=== PATIENT | female | born 1955 | race Caucasian/White ===

== ENCOUNTER → 2023-09-08 09:05 | Outpatient (REF) | payer MEDICARE, SELFPAY ==
[2023-09-08 10:03] LABS: % Basophils 0.4 % (0-2); % Eosinophils 3.3 % (0-6); % Immature Granulocytes 0.3 % (0-0.5); % Lymphocytes 23.9 % (20.5-51.1); % Monocytes 7.1 % (1.7-9.3); Absolute Eosinophils 0.2 10^3/uL (0-0.7); Absolute Lymphocytes 1.6 10^3/uL (1.2-3.4); Absolute Monocytes 0.5 10^3/uL (0.1-0.6); Absolute Neutrophils 4.4 10^3/uL (1.4-6.5); Hematocrit 40.4 % (37.0-47.0); Hemoglobin 14.1 g/dL (12.0-16.0); Mean Corp Hgb Conc. 34.9 g/dL (33.0-37.0); Mean Corpuscular Hgb 31.9 pg (27.0-31.0); Mean Corpuscular Volume 91.4 fL (81.0-99.0); Mean Platelet Volume 10.7 fL (7.4-10.4); Nucleated Red Blood Cells % 0 %; Platelet Count 234 10^3/uL (130-400); Red Blood Cell Count 4.42 10^6/uL (4.20-5.40); Red Cell Dist. Width 12.4 % (11.5-14.5); White Blood Cell Count 6.7 10^3/uL (4.8-10.8)
[2023-09-08 10:57] LABS: ALT (SGPT) 20 U/L (0-35); AST (SGOT) 25 U/L (14-36); Albumin 4.5 g/dl (3.5-5.0); Alkaline Phosphatase 80 U/L (38-126); Blood Urea Nitrogen 17 mg/dl (7-17); Calcium 9.2 mg/dl (8.4-10.2); Carbon Dioxide 26 mmol/L (22-30); Chloride 105 mmol/L (98-107); Glucose 92 mg/dl (70-99); Potassium 3.8 mmol/L (3.5-5.1); Sodium 140 mmol/L (135-145); Total Bilirubin 0.7 mg/dl (0.2-1.3); eGFR > 60.00
[2023-09-08 11:05] LABS: Vitamin D, 25-OH*** 50.9 ng/mL (30-80)
[2023-09-08 11:54] LABS: Total Protein 7.9 g/dl (6.3-8.2)
== END ==
LOC: RAD 09:05
PROVIDERS: ATTENDING PHYSICIAN Internal Medicine Rheumatology; FAMILY PHYSICIAN Internal Medicine
DX: M81.0 Age-related osteoporosis without current pathological fracture (principal); K57.32 Diverticulitis of large intestine without perforation or abscess without bleeding; Z92.21 Personal history of antineoplastic chemotherapy; E55.9 Vitamin D deficiency, unspecified
CPT/HCPCS: 36415; 77080; 80053; 82306; 85025

== ENCOUNTER 2024-01-24 10:43 | Emergency (ER) | payer MEDICARE, SELFPAY ==
[2024-01-24] VITALS (8 sets, daily range): BP systolic 102–123; BP diastolic 71–80; BMI 25.9
[2024-01-24] MEDS: NSS 1000 IV (11:13)
[2024-01-24 11:27] LABS: % Basophils 0.2 % (0-2); % Eosinophils 0.8 % (0-6); % Immature Granulocytes 0.2 % (0-0.5); % Lymphocytes 13.3 % (20.5-51.1); % Monocytes 8.8 % (1.7-9.3); % Neutrophils 76.7 % (42.2-75.2); Absolute Lymphocytes 0.7 10^3/uL (1.2-3.4); Absolute Monocytes 0.5 10^3/uL (0.1-0.6); Hematocrit 40.8 % (37.0-47.0); Hemoglobin 14.2 g/dL (12.0-16.0); Mean Corp Hgb Conc. 34.8 g/dL (33.0-37.0); Mean Corpuscular Hgb 31.7 pg (27.0-31.0); Mean Corpuscular Volume 91.1 fL (81.0-99.0); Nucleated Red Blood Cells % 0 %; Platelet Count 215 10^3/uL (130-400); Red Blood Cell Count 4.48 10^6/uL (4.20-5.40); Red Cell Dist. Width 13.1 % (11.5-14.5); White Blood Cell Count 5.2 10^3/uL (4.8-10.8)
[2024-01-24 11:45] LABS: ALT (SGPT) 23 U/L (0-35); AST (SGOT) 26 U/L (14-36); Albumin 4.8 g/dl (3.5-5.0); Alkaline Phosphatase 77 U/L (38-126); Blood Urea Nitrogen 30 mg/dl (7-17); Carbon Dioxide 25 mmol/L (22-30); Chloride 104 mmol/L (98-107); Estimated Creatinine Clearance 55 ml/min; Glucose 111 mg/dl (70-99); Lipase 105 U/L (23-300); Potassium 3.9 mmol/L (3.5-5.1); Sodium 139 mmol/L (135-145); Total Bilirubin 0.8 mg/dl (0.2-1.3); Total Protein 7.7 g/dl (6.3-8.2); eGFR > 60.00
[2024-01-24] MEDS: OMNIPAQUE 50 ML PO (11:50)
[2024-01-24] MEDS: PEPCID 20 MG IV (11:51)
[2024-01-24] MEDS: COMPAZINE 10 MG IV (11:51)
--- NOTE | 2024-01-24 13:29 | ED.GENMED ---
History of Present Illness
General
Chief Complaint: Abdominal Pain
Source: patient
Exam Limitations: none
Time Seen by Provider: 01/24/24 11:14
Nursing documentation reviewed up to this point in time: agreed with
History of Present Illness
History of Present Illness:
70-year-old female with past medical history of previous colon cancer and partial colectomy presenting to the emergency department today with concerns of nausea vomiting diarrhea starting yesterday ongoing symptoms today has been feeling fatigued.
Denies any chest pain shortness of breath or fevers no blood in her vomitus or stool
Review of Systems
Review of Systems
Allergies reviewed?: Yes
All Other Systems: ROS reviewed and negative except as documented in HPI and ROS
Phy Exam
Physical Exam
Physical Exam:
GENERAL: Alert , in no apparent distress
EYE: pupils equal and reactive
NECK: Supple, no significant adenopathy.
ENT: o/p clr, mmm.
CARDIAC: Regular rate and rhythm .
LUNGS: Clear breath sounds bilaterally, no acute respiratory distress, no wheezes/rales/rhonchi
ABDOMEN: Tenderness palpation to the upper abdomen otherwise abdomen soft, without focal tenderness, no r/g, no cvat
NEUROLOGICAL: Alert and oriented, no focal neuro deficits
SKIN: Warm and dry, skin intact.
MUSCULOSKELETAL: No edema, well perfused.
PSYCH: Normal and appropriate interaction.
Course
Orders/Labs/Results
Orders:
Orders
01/24/24 11:12
0.9% Sodium Chloride 1000 ml [Nss] 1,000 ml IV BOLUS
01/24/24 11:17
Complete Blood Count/With Diff Urgent
Comprehensive Metabolic Panel Urgent
Lipase Urgent
01/24/24 11:40
CT Abd/pel W Iv And Oral Contr Urgent
Comment:
Reason For Exam: hx of partial colectomy/colon CA, abd pain mid abd
Famotidine [Pepcid] 20 mg IV NOW STA
Iohexol [Omnipaque] See Protocol PO NOW STA
Prochlorperazine [Compazine] 10 mg IV NOW STA
01/24/24 13:15
Urinalysis Reflex To Culture Urgent
Date Specimen was Collected: 01/24/24
Time Specimen was Collected: 13:14
Urine Microscopic Reflex Cult Urgent
C difficile Antigen & Toxins Urgent
NATALIYA Source: Feces/Stool
Specimen Description:
Date Specimen was Collected: 01/24/24
Time Specimen was Collected: 13:14
Giardia/Cryptosporidium Ag Urgent
NATALIYA Source: Feces/Stool
Specimen Description:
Date Specimen was Collected: 01/24/24
Time Specimen was Collected: 13:14
Stool Culture Urgent
NATALIYA Source: Feces/Stool
Specimen Description:
Date Specimen was Collected: 01/24/24
Time Specimen was Collected: 13:14
01/24/24 13:54
Add On- LAB Urgent
Tests Added?: Stool- Ova and Parasites
Abnormal Lab Results
01/24/24 01/24/24
11:17 13:15
MCH 31.7 H pg
(27.0-31.0)
Absolute Lymphs (auto) 0.7 L 10^3/uL
(1.2-3.4)
Neutrophils % 76.7 H %
(42.2-75.2)
Lymphocytes % 13.3 L %
(20.5-51.1)
BUN 30 H mg/dl
(7-17)
Glucose 111 H mg/dl
(70-99)
Urine Ketones 1+ A
(Negative)
Leukocyte Esterase Rfl Trace A
(Negative)
01/24/24 11:17
01/24/24 11:17
Vital Signs
Initial and Last Documented VS:
Initial Vital Signs
Temp Pulse Resp BP Pulse Ox
98.7 F 109 18 123/76 95
01/24/24 10:52 01/24/24 10:52 01/24/24 10:52 01/24/24 10:52 01/24/24 10:52
Last Documented Vital Signs
Temp Pulse Resp BP Pulse Ox
98.7 F 89 19 113/74 95
01/24/24 10:52 01/24/24 16:15 01/24/24 16:15 01/24/24 16:00 01/24/24 16:15
MDM/Problems Addressed
MDM/Problems Addressed:
68-year-old female presenting to the emergency department today with concerns of nausea vomiting diarrhea starting yesterday initially tachycardic but improving here after fluids. Reproducible pain only to the epigastric region patient does have
extensive surgical history to the abdomen. Opted to get a CT scan for further assessment. CT scan without emergent findings. Patient seems to be doing really well after receiving medication here at this point appears stable for discharge likely
gastroenteritis return precautions given.
*Critical Care Note
Total Time (30-74mins, 75-104mins- exclusive of procedures): Not Applicable
ED Attending Note
-
Portions of this chart may have been created with voice recognition software.� Occasional wrong word or��sound alike� substitutions may have occurred due to the inherent limitations of voice recognition software.
Discharge Plan
Departure
Patient Disposition: Home (Routine Discharge)
Date of Disposition: 01/24/24
Time of Disposition: 16:39
Patient with high blood pressure during this ER visit?: No
Condition: Good
Covid-19: Not Applicable
Discharge Problem:
Vomiting and diarrhea
Instructions: Diarrhea in teens and adults, Nausea and Vomiting, Adult (DC)
Prescriptions:
New
prochlorperazine maleate [Compazine] 10 mg tablet
10 mg PO BID PRN (Reason: nausea and vomiting) Qty: 7 0RF
Referrals:
Carey Gomes MD [Family Provider] -
Activity Restrictions/Additional Instructions:
You came to the emergency department today with concerns of nausea vomiting and diarrhea. You are found to have some evidence of early dehydration on your labs you were given a liter of fluid here. You are also given medication help with nausea.
Get a CT scan without emergent findings. Symptoms are likely consistent with a stomach bug. Please take the prescribed medication as well as potential Imodium and Pepto-Bismol to help with symptoms. Please try to rehydrate at home. Please
include water and electrolytes. Return to the emergency department for any worsening, new or concerning symptoms.
Interventions
Interventions:
*Risk Screen - Suicide Last Done: 01/24/24 10:55
*General Assessment Last Done: 01/24/24 10:55
*Neglect/Abuse Screening Last Done: 01/24/24 10:55
ED- Fall Risk Assessment Last Done: 01/24/24 11:04
*ED COVID-19 Vaccine History Last Done: 01/24/24 11:04
BX-Vcfjpr-Ljwzebfqtg Assessment Last Done: 01/24/24 11:05
Discharge Date and Time
Print Language: WOLOF
[2024-01-24 13:32] LABS: Urine Albumin Trace (Neg - Trace); Urine Bilirubin Negative (Negative); Urine Character Clear (Clear); Urine Color Yellow; Urine Glucose Negative (Negative); Urine Ketone 1+ (Negative); Urine Leukocyte Trace (Negative); Urine Nitrite Negative (Negative); Urine Occult Blood Negative (Negative); Urine Urobilinogen Negative (Neg - 1+)
[2024-01-24 14:05] LABS: Urine Hyaline Cast 0-2 /LPF (0-2); Urine Red Blood Cell 0-2 /HPF (0-2)
== END 2024-01-24 17:08 | disposition home or self-care (01) ==
LOC: EMR 10:43
PROVIDERS: Physician Assistant; EMERGENCY PHYSICIAN Emergency Medicine; FAMILY PHYSICIAN Internal Medicine
DX: R11.2 Nausea with vomiting, unspecified (principal); R19.7 Diarrhea, unspecified
CPT/HCPCS: 99285; 96374; 96375; 96361; 74177; 80053; 81003; 81015; 83690; 85025; 87045; 87046; 87324; 87328; 87329; 87427; 87449; Q9967

== ENCOUNTER → 2024-08-13 13:13 | Outpatient (REF) | payer MEDICARE, SELFPAY | LOC: WDC 13:13 | PROVIDERS: ATTENDING PHYSICIAN Obstetrics & Gynecology Gynecology; FAMILY PHYSICIAN Internal Medicine | DX: Z12.31 Encounter for screening mammogram for malignant neoplasm of breast (principal) | CPT/HCPCS: 77063; 77067 ==